=== PATIENT | male | born 2005 | race African-American/Black ===

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

== ENCOUNTER 2024-01-25 19:13 | Emergency (ER) | payer SELFPAY ==
[2024-01-25 20:34] LABS: APPEARANCE,URINE CLOUDY; BILIRUBIN,URINE NEGATIVE (NEGATIVE); COLOR,URINE YELLOW; GLUCOSE,URINE NEGATIVE (NEGATIVE); KETONES,URINE NEGATIVE (NEGATIVE); LEUKOCYTE ESTERASE,URINE LARGE (NEGATIVE); NITRITE,URINE NEGATIVE (NEGATIVE); OCCULT BLOOD,URINE TRACE-INTACT (NEGATIVE); PROTEIN,URINE NEGATIVE (NEGATIVE); UROBILINOGEN,URINE 0.2 EU/dL (<2.0)
[2024-01-25 20:52] LABS: EPITHELIAL CELLS,URINE RARE (NONE-FEW); RBC,URINE 0-5 (0-2/HPF); WBC,URINE TO NUMEROUS TO COUNT (0-5/HPF)
[2024-01-25 20:54] LABS: BACTERIA,URINE 1+ (NEGATIVE)
[2024-01-25] MEDS: Doxycycline 100 MG Cap PO ONE (21:28)
[2024-01-25] MEDS: cefTRIAXone 1 GM Vial IM ONE (21:28)
[2024-01-25] MEDS: Lidocaine 1% PF 2 ML SDV INJECT ONE (21:29)
[2024-01-25 22:04] LABS: C. TRACHOMATIS BY PCR NOT DETECTED; N. GONORRHOEAE BY PCR DETECTED
== END 2024-01-25 21:49 | disposition home or self-care (01) ==
LOC: MW.ED 19:13
DX: N39.0 Urinary tract infection, site not specified (principal); Z11.3 Encounter for screening for infections with a predominantly sexual mode of transmission; Z75.8 Other problems related to medical facilities and other health care; Z79.899 Other long term (current) drug therapy
CPT/HCPCS: 81001; 87491; 87591; 96372; 99283; A9270; J0696; J3490

== ENCOUNTER 2024-03-18 15:53 | Emergency (ER) | payer SELFPAY ==
[2024-03-18 16:54] LABS: APPEARANCE,URINE CLEAR; BILIRUBIN,URINE NEGATIVE (NEGATIVE); COLOR,URINE YELLOW; GLUCOSE,URINE NEGATIVE (NEGATIVE); KETONES,URINE NEGATIVE (NEGATIVE); LEUKOCYTE ESTERASE,URINE NEGATIVE (NEGATIVE); NITRITE,URINE NEGATIVE (NEGATIVE); OCCULT BLOOD,URINE NEGATIVE (NEGATIVE); PROTEIN,URINE NEGATIVE (NEGATIVE); UROBILINOGEN,URINE 0.2 EU/dL (<2.0)
[2024-03-18 18:20] LABS: C. TRACHOMATIS BY PCR NOT DETECTED; N. GONORRHOEAE BY PCR NOT DETECTED
== END 2024-03-18 18:36 | disposition home or self-care (01) ==
LOC: MW.ED 15:53
DX: Z11.3 Encounter for screening for infections with a predominantly sexual mode of transmission (principal); Z75.8 Other problems related to medical facilities and other health care
CPT/HCPCS: 81003; 87491; 87591; 99283; 99284